=== PATIENT | male | born 1980 | race African-American/Black ===

== ENCOUNTER 2017-03-03 08:27 | Emergency (ER) | payer SELFPAY ==
[~2017-03-03] VITALS: Ht 182.9 cm; Wt 72.6 kg
[2017-03-03 08:41] VITALS: BP 115/81
[2017-03-03 09:48] LABS: APPEARANCE,URINE CLOUDY; BILIRUBIN, URINE 1+ (NEGATIVE); COLOR,URINE YELLOW; GLUCOSE, URINE (UA) NEGATIVE (NEGATIVE); KETONES,URINE 1+ (NEGATIVE); LEUKOCYTE ESTERASE ,URINE 1+ (NEGATIVE); NITRITE,URINE NEGATIVE (NEGATIVE); PH,URINE 6 (4.5-8.0); PROTEIN,URINE 3+ (NEGATIVE); UROBILINOGEN,URINE 1 MG/DL (0.0-1.0)
[2017-03-03 10:35] VITALS: BP 126/73
--- NOTE | 2017-03-03 12:18 | Emergency Room Report ---
History of Present Illness General Chief Complaint: Male Urogenital Problems Source: Patient Present Illness HPI 36-year-old male, no significant past medical history, presenting with episode of hematuria today. Patient states that he ran 3 miles, noticed that his urine was slightly pink. Patient was sugar-water, and stated that it became clear. Denies any pain. No fever no chills. No abdominal pain. Allergies: Coded Allergies: No Known Allergies (Unverified , 03/03/17) Patient History Past Medical History: see triage record Past Surgical History: none Pertinent Family History: none Reviewed Nursing Documentation: PMH: Agreed, PSxH: Agreed Nursing Documentation-PMH Past Medical History: No Stated History Review of Systems All Other Systems: negative except mentioned in HPI Physical Exam Vital Signs Date Time Temp Pulse Resp B/P (MAP) Pulse Ox O2 Delivery O2 Flow Rate FiO2 03/03/17 08:33 97.9 75 20 115/81 99 Room Air Sp02 EP Interpretation: reviewed, normal General Appearance: normal inspection, well appearing, no apparent distress, alert, GCS 15, non-toxic Head: normocephalic, atraumatic Eyes: bilateral eye normal inspection, bilateral eye PERRL, bilateral eye EOMI ENT: normal ENT inspection, normal pharynx, normal voice, moist mucus membranes Neck: normal inspection, full range of motion, supple Respiratory: normal inspection, lungs clear, normal breath sounds, no respiratory distress, no retraction, no wheezing, speaking full sentences, chest symmetrical Cardiovascular #1: normal inspection, regular rate, rhythm, no edema, normal capillary refill Cardiovascular #2: 2+ radial (R), 2+ radial (L) Gastrointestinal: normal inspection, non tender, soft, non-distended, no guarding Genitourinary: no CVA tenderness Musculoskeletal: normal inspection, back normal, normal range of motion, non- tender Neurologic: normal inspection, alert, oriented x3, responsive, motor strength/ tone normal, sensory intact, normal gait, speech normal Psychiatric: normal inspection, judgement/insight normal, memory normal Skin: normal inspection, normal color, no rash, warm/dry, well hydrated, normal turgor Medical Decision Making Diagnostic Impression: Primary Impression: Hematuria ER Course 36-year-old male with one episode of hematuria DDX: Rule out urinary infection, patient is not having any pain to suggest renal stones, versus myoglobinuria from running Plan: UA ER course: Patient has remained stable during ED stay. UA is negative for infection Patient appears well, is eating a sandwich, not in acute distress. Stable for outpatient management and further evaluation Disposition: Patient is to be discharged to home. Patient is instructed to follow up with their primary care doctor within 5 days for hematuria Strict return precautions discussed with patient such as fever, chills, worsening/severe pain, chest pain, SOB, nausea, vomiting, which may indicate severe illness. Patient verbalizes understanding and agrees with plan. Please note that this Emergency Department Report was dictated using [employer] instructor technology software, occasionally this can lead to erroneous entry secondary to interpretation by the dictation equipment Last Vital Signs Date Time Temp Pulse Resp B/P (MAP) Pulse Ox O2 Delivery O2 Flow Rate FiO2 03/03/17 10:35 97.9 55 16 126/73 97 Room Air Disposition: HOME, SELF-CARE Condition: Improved Patient Instructions: Hematuria, Adult Hector Grossman M.D. Mar 03, 2017 12:18
== END 2017-03-03 10:35 | disposition home or self-care (01) ==
LOC: EMR 09:37
DX: R31.9 Hematuria, unspecified (principal)
CPT/HCPCS: 81001; 99283